=== PATIENT | male | born 1960 | race Caucasian/White ===

== ENCOUNTER → 2021-07-24 | Outpatient (CLI) | payer BC ==
[~2021-07-24] MED LIST: ASPIRIN E.C. 8181 MG PO
[2021-07-24 16:23] LABS: HEMATOCRIT 35.4 % (42.0-52.0); HEMOGLOBIN 11.8 g/dL (13.5-18.0); MEAN PLATELET VOLUME 9.2 fl (7.4-10.4); RED BLOOD COUNT 4.29 M/mm3 (4.20-5.60); RED CELL DISTRIBUTION WIDTH 13.7 % (11.5-14.5); WHITE BLOOD COUNT 8.9 K/mm3 (4.8-10.8)
[2021-07-24 16:34] LABS: ALBUMIN 3.6 g/dL (3.5-5.0); POTASSIUM 4.3 mmol/L (3.5-5.1)
[2021-07-24 16:35] LABS: CALCIUM 9.2 mg/dL (8.3-10.5)
[2021-07-24 16:36] LABS: TOTAL PROTEIN 7.7 g/dL (6.4-8.3)
[2021-07-24 16:38] LABS: TOTAL BILIRUBIN 0.3 mg/dL (0.2-1.2)
== END ==
LOC: LAB 14:12
PROVIDERS: Internal Medicine Infectious Disease
DX: Z01.89 Encounter for other specified special examinations (principal)

== ENCOUNTER → 2021-07-31 | Outpatient (CLI) | payer SELFPAY ==
[~2021-07-31] MED LIST changes: +CLOPIDOGREL PO
[2021-07-31 16:48] LABS: HEMATOCRIT 37.4 % (42.0-52.0); HEMOGLOBIN 12.5 g/dL (13.5-18.0); RED BLOOD COUNT 4.59 M/mm3 (4.20-5.60); RED CELL DISTRIBUTION WIDTH 13.8 % (11.5-14.5); WHITE BLOOD COUNT 11.8 K/mm3 (4.8-10.8)
[2021-07-31 16:59] LABS: ALBUMIN 3.9 g/dL (3.5-5.0); POTASSIUM 4.2 mmol/L (3.5-5.1); SODIUM 140 mmol/L (136-145)
[2021-07-31 17:00] LABS: CALCIUM 9.1 mg/dL (8.3-10.5)
[2021-07-31 17:01] LABS: GLUCOSE 70 mg/dL (75-110)
[2021-07-31 17:02] LABS: TOTAL PROTEIN 7.9 g/dL (6.4-8.3)
[2021-07-31 17:03] LABS: TOTAL BILIRUBIN 0.3 mg/dL (0.2-1.2)
[2021-07-31 17:07] LABS: AST-SGOT 19 U/L (5-34)
[2021-07-31 17:08] LABS: ALT/SGPT 30 U/L (0-55)
[2021-07-31 17:24] LABS: CARBON DIOXIDE 16 mmol/L (22-29)
== END ==
LOC: LAB 15:24
PROVIDERS: Internal Medicine Infectious Disease
DX: Z01.89 Encounter for other specified special examinations (principal)

== ENCOUNTER 2021-08-01 15:45 | Outpatient (RCR) | payer BC ==
[2021-07-22 16:56] VITALS: BP 112/75
[2021-07-22 18:00] VITALS: BP 116/71
[2021-07-24 16:18] VITALS: BP 129/83
[2021-07-25 16:05] VITALS: BP 142/90
[2021-07-26 16:05] VITALS: BP 140/97
[2021-07-27 15:57] VITALS: BP 106/77
[2021-07-27 16:35] VITALS: BP 113/76
[2021-07-28 16:10] VITALS: BP 112/78
[2021-07-29 16:22] VITALS: BP 132/79
[2021-07-29 17:07] VITALS: BP 127/78
[2021-07-30 16:00] VITALS: BP 153/82
[2021-07-31 16:49] VITALS: BP 106/66
[~2021-08-01] VITALS: Ht 175.3 cm; Wt 75.5 kg
[2021-08-01 16:33] VITALS: BP 128/74
== END 2021-09-25 | disposition home or self-care (01) ==
LOC: AMSURD
DX: E11.52 Type 2 diabetes mellitus with diabetic peripheral angiopathy with gangrene (principal); A49.01 Methicillin susceptible Staphylococcus aureus infection, unspecified site; Z89.432 Acquired absence of left foot
CPT/HCPCS: J1335

== ENCOUNTER → 2021-08-07 | Outpatient (CLI) | payer SELFPAY ==
[2021-08-07 17:15] LABS: HEMATOCRIT 36.1 % (42.0-52.0); HEMOGLOBIN 12.1 g/dL (13.5-18.0); MEAN PLATELET VOLUME 8.8 fl (7.4-10.4); RED BLOOD COUNT 4.41 M/mm3 (4.20-5.60); RED CELL DISTRIBUTION WIDTH 14.1 % (11.5-14.5); WHITE BLOOD COUNT 8.5 K/mm3 (4.8-10.8)
[2021-08-07 17:25] LABS: ALBUMIN 3.6 g/dL (3.5-5.0); POTASSIUM 3.7 mmol/L (3.5-5.1)
[2021-08-07 17:26] LABS: CALCIUM 8.8 mg/dL (8.3-10.5)
[2021-08-07 17:27] LABS: TOTAL PROTEIN 7.1 g/dL (6.4-8.3)
[2021-08-07 17:29] LABS: TOTAL BILIRUBIN 0.3 mg/dL (0.2-1.2)
== END ==
LOC: LAB 15:50
PROVIDERS: Internal Medicine Infectious Disease
DX: Z01.89 Encounter for other specified special examinations (principal)

== ENCOUNTER → 2021-08-14 | Outpatient (CLI) | payer SELFPAY ==
[2021-08-14 17:44] LABS: HEMATOCRIT 35.4 % (42.0-52.0); HEMOGLOBIN 11.7 g/dL (13.5-18.0); MEAN PLATELET VOLUME 9.3 fl (7.4-10.4); RED BLOOD COUNT 4.27 M/mm3 (4.20-5.60); RED CELL DISTRIBUTION WIDTH 14.3 % (11.5-14.5); WHITE BLOOD COUNT 8.4 K/mm3 (4.8-10.8)
[2021-08-14 17:45] LABS: ALBUMIN 3.8 g/dL (3.5-5.0); POTASSIUM 4.5 mmol/L (3.5-5.1)
[2021-08-14 17:46] LABS: CALCIUM 9.1 mg/dL (8.3-10.5)
[2021-08-14 17:48] LABS: TOTAL PROTEIN 7.4 g/dL (6.4-8.3)
[2021-08-14 17:50] LABS: TOTAL BILIRUBIN 0.4 mg/dL (0.2-1.2)
== END ==
LOC: LAB 17:18
PROVIDERS: Internal Medicine Infectious Disease
DX: Z01.89 Encounter for other specified special examinations (principal)

== ENCOUNTER → 2021-08-21 | Outpatient (CLI) | payer SELFPAY ==
[2021-08-21 17:01] LABS: HEMATOCRIT 33.3 % (42.0-52.0); HEMOGLOBIN 11.1 g/dL (13.5-18.0); MEAN PLATELET VOLUME 9.3 fl (7.4-10.4); RED BLOOD COUNT 3.98 M/mm3 (4.20-5.60); RED CELL DISTRIBUTION WIDTH 14.4 % (11.5-14.5); WHITE BLOOD COUNT 6.9 K/mm3 (4.8-10.8)
[2021-08-21 17:07] LABS: ALBUMIN 3.6 g/dL (3.5-5.0); POTASSIUM 4.4 mmol/L (3.5-5.1)
[2021-08-21 17:09] LABS: CALCIUM 9.3 mg/dL (8.3-10.5)
[2021-08-21 17:10] LABS: TOTAL PROTEIN 7.1 g/dL (6.4-8.3)
[2021-08-21 17:12] LABS: TOTAL BILIRUBIN 0.2 mg/dL (0.2-1.2)
== END ==
LOC: LAB 16:24
PROVIDERS: Internal Medicine
DX: Z01.89 Encounter for other specified special examinations (principal)

== ENCOUNTER 2021-08-24 15:40 | Outpatient (RCR) | payer BC ==
[2021-08-02 17:47] VITALS: BP 97/68
[2021-08-03 17:30] VITALS: BP 117/71
--- NOTE | 2021-08-03 18:03 | NUR ---
PATIENT SEEN AT WOUND CENTER IN [place]; NO DRESSING CHANGE DUE TODAY.
[2021-08-04 17:00] VITALS: BP 127/78
[2021-08-05 16:32] VITALS: BP 139/87
[2021-08-06 16:29] VITALS: BP 131/85
[2021-08-07 17:14] VITALS: BP 99/73
[2021-08-08 16:39] VITALS: BP 138/80
[2021-08-10 17:11] VITALS: BP 120/75
[2021-08-11 17:20] VITALS: BP 104/66
[2021-08-12 16:18] VITALS: BP 127/82
[2021-08-13 16:09] VITALS: BP 151/89
[2021-08-14 17:34] VITALS: BP 120/70
[2021-08-15 16:48] VITALS: BP 151/87
[2021-08-16 16:08] VITALS: BP 124/83
[2021-08-18 16:05] VITALS: BP 123/72
[2021-08-19 18:07] VITALS: BP 115/79
[2021-08-20 16:37] VITALS: BP 131/80
[2021-08-21 16:47] VITALS: BP 112/78
[2021-08-22 17:38] VITALS: BP 112/73
[2021-08-23 16:32] VITALS: BP 134/92
[~2021-08-24] VITALS: Ht 175.3 cm; Wt 75.5 kg
[2021-08-24 16:00] VITALS: BP 128/87
[2021-08-26 15:46] VITALS: BP 154/95
--- NOTE | 2021-08-26 17:38 | NUR ---
Changed Rt PICC drsg and cap today. Insertion site looked normal without redness or drainage. Brisk blood return and flushed easily. Changed dressings on both feet today. Small shallow hole on bottom of Rt great toe, size of pencil eraser. Cleansed with NS and painted with betadine. Covered with gauze 2x2 [address]. Replaced patient's sock and hard soled shoe on Rt foot. Removed dressings on left foot to reveal open wound on Lt heel with yellow purulent drainage from an open white wound approx 1cm x1cm. Cleansed with NS then applied wound gel sent from wound clinic, and a small piece of Promogran over the white area, covered with telfa and wrapped with kerlix. 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 Sutures remain intact and incision is healing with only one or two areas that are not completely closed up. Cleansed incision line with NS, then painted with betadine, then applied a small amount of Gentamycin topically over the open areas. Covered with Telfa, and wrapped with Kerlix and then an HUMA bandage. Replaced patients half shoe. Pt left hospital ambulatory.
== END 2021-08-25 12:12 | disposition home or self-care (01) ==
LOC: AMSURD 15:40
DX: E11.52 Type 2 diabetes mellitus with diabetic peripheral angiopathy with gangrene (principal); I96 Gangrene, not elsewhere classified; A49.01 Methicillin susceptible Staphylococcus aureus infection, unspecified site; Z89.432 Acquired absence of left foot
CPT/HCPCS: J1335

== ENCOUNTER → 2021-08-28 | Outpatient (CLI) | payer BC ==
[2021-08-28 17:22] LABS: HEMATOCRIT 33.7 % (42.0-52.0); HEMOGLOBIN 11.6 g/dL (13.5-18.0); MEAN PLATELET VOLUME 9.5 fl (7.4-10.4); RED BLOOD COUNT 4.1 M/mm3 (4.20-5.60); RED CELL DISTRIBUTION WIDTH 14.5 % (11.5-14.5); WHITE BLOOD COUNT 7.8 K/mm3 (4.8-10.8)
[2021-08-28 17:32] LABS: ALBUMIN 3.8 g/dL (3.5-5.0); POTASSIUM 3.9 mmol/L (3.5-5.1)
[2021-08-28 17:33] LABS: CALCIUM 8.8 mg/dL (8.3-10.5)
[2021-08-28 17:35] LABS: TOTAL PROTEIN 7.2 g/dL (6.4-8.3)
[2021-08-28 17:37] LABS: TOTAL BILIRUBIN 0.4 mg/dL (0.2-1.2)
== END ==
LOC: LAB 16:26
PROVIDERS: Internal Medicine Infectious Disease
DX: Z01.89 Encounter for other specified special examinations (principal)

== ENCOUNTER 2021-09-24 10:32 | Outpatient (RCR) | payer BC ==
[2021-08-27 16:26] VITALS: BP 127/82
[2021-08-28 16:37] VITALS: BP 123/79
[2021-08-29 17:11] VITALS: BP 125/82
[2021-09-02 17:15] VITALS: BP 137/82
[2021-09-10 17:00] VITALS: BP 142/90
[2021-09-12 17:45] VITALS: BP 102/78
[2021-09-13 17:30] VITALS: BP 107/62
[2021-09-16 17:07] VITALS: BP 158/90
[2021-09-17 17:39] VITALS: BP 135/75
[2021-09-23 16:00] VITALS: BP 101/72
[~2021-09-24] VITALS: Ht 175.3 cm; Wt 75.5 kg
== END 2021-09-25 | disposition home or self-care (01) ==
LOC: AMSURD
DX: E08.621 Diabetes mellitus due to underlying condition with foot ulcer (principal); L97.519 Non-pressure chronic ulcer of other part of right foot with unspecified severity; L97.429 Non-pressure chronic ulcer of left heel and midfoot with unspecified severity; Z89.432 Acquired absence of left foot
CPT/HCPCS: J1335

== ENCOUNTER 2021-10-02 16:48 | Outpatient (RCR) | payer BC ==
[2021-10-01 18:26] VITALS: BP 152/92
--- NOTE | 2021-10-01 18:44 | NUR ---
RAS [facility] TONIGHT FOR A DRESSING CHANGE TO BILATERAL FEET. HE STATES HE SLEPT ALL DAY YESTERDAY AND DIDN'T WAKE UP IN TIME TO COME FOR HIS DRESSING CHANGE SO HE DID THEM HIMSELF AT HOME. HE HAS NEW WOUND CARE INSTRUCTIONS THAT WERE COPIED. HE STATES THAT HE HAS AN APPOINTMENT ON 10/03 TO GET A WOUND VAC APPLIED TO THE LEFT HEEL. WILL RETURN TO [facility] FOR DAILY DRESSING CHAGES FOLLOWING THAT APPOINTMENT.
[~2021-10-02] VITALS: Ht 175.3 cm; Wt 75.5 kg
== END 2021-10-23 | disposition home or self-care (01) ==
LOC: AMSURD
DX: E08.621 Diabetes mellitus due to underlying condition with foot ulcer (principal); L97.519 Non-pressure chronic ulcer of other part of right foot with unspecified severity; L97.429 Non-pressure chronic ulcer of left heel and midfoot with unspecified severity; Z89.432 Acquired absence of left foot